=== PATIENT | female | born 1945 | race African-American/Black ===

== ENCOUNTER 2017-12-02 14:04 | Emergency (ER) | payer MEDICARE ==
[~2017-12-02] VITALS: Ht 157.5 cm; Wt 68.2 kg
[~2017-12-02 14:04] MED LIST: BUPR75 PO; CELEBREX; ESOM20CA31 PO; GABA-531 PO; HYDR-3705 PO; LISI-662 PO; METF500T7 PO; RISP1 PO
[2017-12-02] MEDS ORDERED: OMEP20 PO (14:22)
[2017-12-02] MEDS ORDERED: TRAZ-144 PO (14:22)
[2017-12-02] MEDS ORDERED: SERT50TA12 PO (14:22)
[2017-12-02] MEDS ORDERED: KETOROLAC TROMETHAMINE 30 MG/ML VIAL IM ONE (15:45)
[2017-12-02] MEDS ORDERED: CloNIDine HCL 0.2 MG TABLET PO ONE (15:45)
[2017-12-02 18:30] VITALS: BP 155/73
== END 2017-12-02 18:31 | disposition home or self-care (01) ==
LOC: EMS 14:06
DX: M54.5 Low back pain (principal); M79.7 Fibromyalgia; J44.9 Chronic obstructive pulmonary disease, unspecified; E11.9 Type 2 diabetes mellitus without complications; I10 Essential (primary) hypertension; F14.90 Cocaine use, unspecified, uncomplicated; F17.210 Nicotine dependence, cigarettes, uncomplicated
CPT/HCPCS: 96372; 99283; J1885

== ENCOUNTER 2021-02-21 21:17 | Emergency (ER) | payer MEDICARE ==
[~2021-02-21] VITALS: Ht 160 cm; Wt 90.9 kg
[~2021-02-21 21:17] MED LIST changes: -CELEBREX; -ESOM20CA31 PO; +GABA-1181 PO; -GABA-531 PO; -HYDR-3705 PO; -LISI-662 PO; +LISI-894 PO; -METF500T7 PO; +OMEP20 PO; -RISP1 PO; +SERT-158 PO; +TRAZ-252 PO
[2021-02-22] MEDS ORDERED: ACETAMINOPHEN 325 MG TABLET PO ONE (02:00)
[2021-02-22] MEDS ORDERED: LIDOCAINE 5% TRANSDERMAL PATCH TD ONE (02:00)
[2021-02-22 04:34] VITALS: BP 139/77
== END 2021-02-22 05:03 | disposition home or self-care (01) ==
LOC: EMS 21:19
DX: M13.852 Other specified arthritis, left hip (principal); M25.552 Pain in left hip; J44.9 Chronic obstructive pulmonary disease, unspecified; E11.9 Type 2 diabetes mellitus without complications; F31.9 Bipolar disorder, unspecified; I10 Essential (primary) hypertension; F20.9 Schizophrenia, unspecified; F17.210 Nicotine dependence, cigarettes, uncomplicated; F14.90 Cocaine use, unspecified, uncomplicated; Z79.899 Other long term (current) drug therapy; Z79.84 Long term (current) use of oral hypoglycemic drugs
CPT/HCPCS: 73503; 99282; 99283